=== PATIENT | female | born 1970 | race Caucasian/White ===

== ENCOUNTER → 2020-07-08 10:24 | Outpatient (CLI) | payer OTHER, SELFPAY ==
[2020-07-08] MEDS: COVID-19 VACC(MODERNA-1)/PF 100 MCG/0.5 ML VIAL IM (10:31)
== END ==
PROVIDERS: Visit Provider Internal Medicine
DX: Z23 Encounter for immunization (principal)
CPT/HCPCS: 0011A; 91301

== ENCOUNTER → 2020-08-03 10:04 | Outpatient (CLI) | payer OTHER, SELFPAY ==
[2020-08-03] MEDS: COVID-19 VACC #2, MRNA(MOD) 100 MCG/0.5 ML VIAL IM (10:09)
== END ==
PROVIDERS: Visit Provider Internal Medicine
DX: Z23 Encounter for immunization (principal)
CPT/HCPCS: 0012A; 91301

== ENCOUNTER → 2020-12-06 07:12 | Outpatient (CLI) | payer OTHER, SELFPAY ==
[2020-12-06 08:01] LABS: Add Manual Diff / Slide Review NO; Basophils Absolute Auto 0 /uL (0-100); Basophils Percent Auto 0.4 % (0-2); Eosinophils Absolute Auto 100 /uL (0-450); Eosinophils Percent Auto 3.1 % (2-4); Hematocrit 36.6 % (36-46); Hemoglobin 12.6 g/dL (12.0-16.0); Lymphocytes Absolute Auto 1600 /uL (1100-4500); Lymphocytes Percent Auto 40.2 % (25-40); Mean Corpuscular HGB Conc 34.4 % (30-36); Mean Corpuscular Volume 87.1 fL (80-100); Monocytes Absolute Auto 300 /uL (0-900); Monocytes Percent Auto 7.7 % (3-14); Neutrophils Absolute Auto 1900 /uL (1500-7000); Neutrophils Percent Auto 48.6 % (50-75); Platelet Count 212 X10^3/uL (150-400)
[2020-12-06 08:19] LABS: Alanine Aminotransferase 17 IU/L (<35); Albumin 4.1 g/dL (3.5-5.0); Albumin Globulin Ratio 1.4 (1.0-2.8); Alkaline Phosphatase 47 U/L (38-126); Aspartate Aminotransferase 22 IU/L (14-36); BUN Creatinine Ratio 24.5 (6-22); Bilirubin Total 0.2 mg/dL (0.2-1.3); Blood Urea Nitrogen 13 mg/dL (7-17); Calcium 9.4 mg/dL (8.4-10.2); Carbon Dioxide 29 mmol/L (22-32); Chloride 101 mmol/L (98-107); Estimated Glomerular Filt Rate > 60.0 mL/min (>60); Globulin 2.9 g/dL (1.7-4.1); Glucose 102 mg/dL (70-100); HEMOLYSIS < 15 (0-50); Potassium 4.3 mmol/L (3.4-5.1); Sodium 135 mmol/L (137-145)
[2020-12-06 08:40] LABS: Free T4, Direct Thyroxine 1.14 ng/dL (0.78-2.19)
[2020-12-06 08:54] LABS: Thyroid Stimulating Hormone 1.99 uIU/mL (0.47-4.68)
== END ==
PROVIDERS: PCP Registered Nurse; Referring Provider Registered Nurse; Visit Provider Registered Nurse
DX: R53.83 Other fatigue (principal); N92.0 Excessive and frequent menstruation with regular cycle
CPT/HCPCS: 36415; 80053; 84439; 84443; 85025

== ENCOUNTER → 2021-04-12 | Outpatient (CLI) | payer OTHER, SELFPAY | PROVIDERS: PCP Registered Nurse; Referring Provider Internal Medicine; Visit Provider Internal Medicine | DX: Z23 Encounter for immunization (principal) | CPT/HCPCS: 90471; 90686 ==

== ENCOUNTER → 2021-05-09 16:05 | Outpatient (CLI) | payer OTHER, SELFPAY ==
[2021-05-09 17:20] LABS: COVID19 -Nasal RAPID Negative (Negative)
== END ==
PROVIDERS: PCP Registered Nurse; Visit Provider Obstetrics & Gynecology
DX: Z20.822 Contact with and (suspected) exposure to COVID-19 (principal); Z01.812 Encounter for preprocedural laboratory examination
CPT/HCPCS: 87635

== ENCOUNTER 2021-05-10 12:26 | Day surgery (SDC) | payer OTHER, SELFPAY ==
[2021-05-06 10:12] VITALS: BMI 24.4
--- NOTE | 2021-05-10 | PATH_ITS ---
[facility] Accession Number: [id number] . 01 Material submitted: . PART A: endocervix - ENDOCERVICAL CURRETTINGS PART B: cervix - EXCISION OF CERVIX . 02 Diagnosis: A. Endocervix, Curettage: Endocervical and squamous epithelium with no diagnostic abnormality. No evidence of squamous intraepithelial lesion or malignancy. . B. Cervix, LEEP: Cervical transformation zone with focal mild squamous atypia, suggestive of but not diagnostic of low-grade squamous intraepithelial lesion (AMOL-1). Negative for high-grade squamous intraepithelial lesion or malignancy. Margins appear negative for neoplasm. [facility] 05/17/2021 1603 Local . 02 Comment: . . 02 Electronically signed: . Hesham Healy MD, PhD, Pathologist NPI- [id number] . 01 Gross description: . A. Received in formalin, labeled with the patient's name and additionally labeled endocervical curettage is an aggregate of hauser-brown mucoid material measuring 2.0 x 1.0 x 0.2 cm. The specimen is wrapped and entirely submitted in cassette A1. B. Received in formalin, labeled with the patient's name and additionally labeled cervix, excision is an unoriented cervical LEEP specimen measuring 1.7 x 1.0 cm excised to a depth of 0.9 cm. The cervical os is slit-like and patent measuring 0.6 cm in greatest dimension. The ectocervical mucosa is hauser-pink and smooth, and no lesions are grossly identified. The endocervical margin is inked red, and the remaining deep and ectocervical margin are inked blue. The unoriented specimen is arbitrarily sectioned into quadrants, with each quadrant submitted in cassettes B1-B4, respectively. ([id number]) /MRV 05/13/2021 [facility] . 02 Pathologist provided ICD-10: R87.810 . 02 CPT . 237654, [id number] Performed at: 01 [facility] [address] [id number] MD Gary Maravilla MD Phone: [phone] Performed at: [id number] [place], [place] [id number] MD Susan Tran MD Phone: [phone]
[2021-05-10 12:40] VITALS: BP 105/71; PULSE 56; RESP 16; TEMP 36.6; O2SAT 98; BMI 24.1
[2021-05-10] MEDS: LACTATED RINGERS 1,000 ML 100 ML IV (12:52)
--- NOTE | 2021-05-10 13:09 | PM.PREOP ---
Pre-operative Note COVID-19 COVID-19 status: Negative Result date/Date tested (Pos, Neg/Pending): 05/09/21 Interval Note History & Physical reviewed/Exam performed by Physician: Yes Changes to H&P: No
[2021-05-10] MEDS: BUPIVACAINE 0.5% (PF) VIAL 30 ML INJ (13:57)
[2021-05-10] MEDS: FERRIC SUBSULFATE 8 GM SOLUTION 8 ML TOP (13:57)
[2021-05-10] MEDS: POTASSIUM IODIDE/IODINE 473 ML SOLUTION TOP (13:57)
[2021-05-10] MEDS: EPINEPHrine 1 MG/ML 0.15 MG INJ (13:57)
--- NOTE | 2021-05-10 14:09 | SUR.OPER ---
Lithotomy on padded OR bed, head on pillow, arms secured on padded arm boards at <90 degrees abduction. Legs secured in padded yellow fins stirrups.
--- NOTE | 2021-05-10 14:14 | PM.OP.1 ---
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 No areas of nonstaining with Lugols Closure Type: not applicable Specimen(s): other (Cone biopsy by LEEP and ECC) Estimated Blood Loss (mL): 1 Blood products transfused: none Procedure in detail: Patient is brought to the operating room where she underwent general anesthesia. She was placed in low Yellofin stirrups and draped. A check system was reviewed with staff in the room prior to beginning of the case. No antibiotics were indicated. Pulsatile stockings were in place and functional. Warming was with blankets. The cervix was stained with Lugol's. The cervix was injected with Marcaine with epinephrine. A small loop was used to remove the entire squamocolumnar junction in 1 pass. An ECC was performed. The base of the cone and outside of the come more cauterized with the ball cautery. The Monsel's was placed on the cervix. Tissue sent to pathology. Patient went to recovery room in good condition. Counts of instruments and sponges were correct. Complications: none Post-operative Condition: stable Disposition: same day surgery Plan for aftercare: Home when awake and stable. Treatment and follow-up based on biopsy results.
[2021-05-10 14:15] VITALS: BP 108/62; PULSE 69; RESP 10; TEMP 36.2; O2SAT 100
[2021-05-10 14:20] VITALS: BP 102/63; PULSE 60; RESP 12; O2SAT 99
[2021-05-10 14:25] VITALS: BP 116/64; PULSE 51; RESP 12; O2SAT 99
[2021-05-10 14:31] VITALS: BP 128/70; PULSE 56; RESP 12; TEMP 36.2; O2SAT 100
[2021-05-10 14:39] VITALS: BP 126/76; PULSE 46; RESP 12; TEMP 36.4; O2SAT 99
== END 2021-05-10 14:50 | disposition home or self-care (01) ==
PROVIDERS: PCP Registered Nurse; Referring Provider Specialist; Visit Provider Specialist
PROC: 0UBC7ZZ Excision of Cervix, Via Natural or Artificial Opening (ICD-10-PCS; CPT 57522; principal; 2021-05-10 13:30)
DX: R87.810 Cervical high risk human papillomavirus (HPV) DNA test positive (principal)
CPT/HCPCS: 57522; 81025; A9270; J0171; J1100; J1885; J2250; J2405; J2704; J3010

== ENCOUNTER 2021-11-30 11:45 | Outpatient (RCR) | payer OTHER, SELFPAY ==
--- NOTE | 2021-10-05 16:50 | PT.OPPOC ---
Physical, Occupational & Speech Therapy At [facility] Current Diagnoses Other chronic pain (10/05/21) Plantar fascial fibromatosis (10/05/21) Pain in left foot (10/05/21) Difficulty in walking, not elsewhere classified (10/05/21) Visit Care Team Role Provider Type MAXWELL Florian Attending Provider Advanced Reexaminer Family Provider Primary Care Provider Referring Provider Specialty: Medical Address: [address] [place] [address], [facility] Email: [email or web address] Plan Of Care PT-OP-T Assessment and Plan Start: 10/04/21 12:56 Freq: Status: Active Protocol: Document 10/05/21 13:45 AW (Rec: 10/09/21 16:48 AW [id number]) Physical Therapy Assessment Rehab Potential Rehabilitation Potential Good Evaluation Complexity Number of Personal Factors/Comorbidities 1-2 Number of Body Systems Impaired 1-2 Clinical Presentation at Evaluation Stable Impairments Impairments Balance,Gait,Pain,Soft Tissue Mobility,Strength Goals Four Impairment walking tolerance affected by left foot pain Short Term Goal (STG) Pt will hike trails with loaded backpack 2 hours without increase in baseline pain. STG Duration 4 weeks - 11/02/21 Senior Living Goal (LTG) Pt will hike trails with loaded backpack at least 4 hours without increase in baseline pain. LTG Duration 8 weeks - 11/30/21 Three Impairment balance/single leg stance Senior Living Goal (LTG) Pt will improve single leg stance to stable 30 seconds BLE as a measure of improved ankle stability. LTG Duration 8 weeks - 11/30/21 Two Impairment left foot/ankle strength Senior Living Goal (LTG) Pt will improve left foot and ankle strength to 5/5 all planes to improve gait quality . LTG Duration 8 weeks - 11/30/21 One Impairment lacks HEP Short Term Goal (STG) Pt will be instructed in HEP for to manage left foot pain and improve left foot/ankle strength and stability. STG Duration 4 weeks - 11/02/21 Senior Living Goal (LTG) Pt will be independent with HEP for to manage left foot pain and improve left foot/ ankle strength and stability. LTG Duration 8 weeks - 11/30/21 Assessment Summary Assessment Freda is an active 51 yo woman who attend outpatient physical therapy with complaints of left foot and right knee pain. Her pain does not limit her from regular activity but she would like to learn tools to improve her pain with the goal of trekking [place] in November. She presents with slight deficits in left foot and ankle strength as well as single leg balance deficits. Her symptoms are consistent with plantar fasciitis which is likely altering her gait mechanics, leading to right knee pain. She is expected to benefit from skilled physical therapy to address her plantar foot pain, improve her foot and ankle strength, and improve her gait efficiency. Physical Therapy Plan Frequency and Duration Frequency of Treatment 2x/Week Duration of Treatment 2 months Plan of Care Start Date 10/05/21 Plan of Care End Date 12/05/21 Therapeutic Interventions Therapeutic Interventions Balance Training,Gait Training ,Home Exercise Program,Manual Therapy,Neuromuscular Re- education,Self-Care/Home Management,Soft Tissue Mobilization,Taping, Therapeutic Activities, Therapeutic Exercises Next Visit Focus/Plan Next Note Type Treatment Note Next Visit Plan Review initial HEP. STM plantar fascia and gastroc/ soleus. Consider taping to support plantar fascia. Assess 4-way resisted ankle and consider for HEP as appropriate. Consider modified CTSIB for proprioception assessment. Plan of Care Dates Plan of Care Start Date 10/05/21 Plan of Care End Date 12/05/21 Electronically Signed by: Marsha Almanzar, STEPHANIE 10/09/21 [id number] Please Sign and Return: I have reviewed this Plan of Care and certify that the skilled therapy services above are required to meet the patient?s needs. Physician Signature Date Printed Name and Credentials Clinical Instructor Signature Printed Name and Credentials
--- NOTE | 2021-10-05 16:50 | PT.OIE ---
Current Diagnoses Other chronic pain (10/05/21) Plantar fascial fibromatosis (10/05/21) Pain in left foot (10/05/21) Difficulty in walking, not elsewhere classified (10/05/21) Past Medical History (Last Reviewed 08/31/21 @ 10:35 by MAXWELL Florian) Callus of foot Fatigue Frequent menstruation Human papilloma virus Hx of partial mastectomy (04/2019) Pain, foot, left, chronic Plantar fasciitis of left foot Plantar warts (~2010) Status post breast reduction (~2015) Wears glasses Past Surgical History (Last Reviewed 08/31/21 @ 10:35 by MAXWELL Florian) Anesthesia History of uterine fibroid (~2011) Hx of partial mastectomy (04/2019) Status post breast reduction (~2015) Visit Care Team Role Provider Type MAXWELL Florian Attending Provider Advanced Vegetable Canner Family Provider Primary Care Provider Referring Provider Specialty: Medical Address: [address] [place] [address], [facility] Email: [email or web address] Physical Therapy Initial Evaluation PT-OP-A Visit Information Start: 10/04/21 12:56 Freq: Status: Active Protocol: Document 10/05/21 13:45 AW (Rec: 10/04/21 13:02 AW [id number]) Out-Patient Physical Therapy Visit Information Visit Information Visit Type Initial Evaluation Visit Start Time 13:00 Visit Stop Time 13:45 Total Visit Minutes 45 Visit Number 1 Evaluation Information Evaluation Date 10/05/21 PT-OP-B Current Condition Start: 10/04/21 12:56 Freq: Status: Active Protocol: Document 10/05/21 13:45 AW (Rec: 10/04/21 13:02 AW [id number]) Current Condition History of Current Condition Onset Date 1 month Current Complaints left foot pain History of Current Condition Freda is training for a Compliance [employer] this November. She has been carrying more weight in her pack (~45#) on local hiking trails several days per week. She usually hikes 1-2 hours at a time. She also does trail running. Her shoes are supportive and she uses an off -the-shelf insert to support her arches. She notices her left foot aching along medial arch. She is not aware of heel pain generally but notices it is tender to touch on the plantar surface. Ibuprofen on a limited basis, ice, rest, and massage are all helpful. She has most pain with inversion. She reports a remote history of left distal fibula fracture. 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 Treatment Goals Patient/Caregiver Goals Reduce pain. Be able to increase strength. Hike [place] without pain. PT-OP-C Subjective Start: 10/04/21 12:56 Freq: Status: Active Protocol: Document 10/05/21 13:45 AW (Rec: 10/09/21 16:25 AW [id number]) OP-PT Subjective Patient Comments Patient Comments It's more annoying than painful but it's not getting any better. Patient Questionnaires Foot & Ankle Ability Measure- ADL and Sports FAAM-ADL Score 74 FAAM-ADL Impairment 1 to 19% Impaired (Score 67-83 ) FAAM-Sport Score 20 FAAM-Sport Impairment 20 to 39% Impaired (Score 19- 24) Lower Extremity Functional Scale LEFS Score 72 LEFS Impairment 1 to 19% Impaired (Score 63-79 ) OP-PT Pain Assessment Pain Assessment Grid Paper Pain Assessment Grid Completed Yes: Left foot and right knee pain noted. Scanned to EMR Home Pain Medication Use Pain Medications Used Yes: limited use of ibuprofen PT-OP-D Balance Start: 10/04/21 12:56 Freq: Status: Active Protocol: Document 10/05/21 13:45 AW (Rec: 10/09/21 16:49 AW [id number]) Balance Tests Single Limb Standing Single Limb- Right 25 seconds stable Single Limb- Left 18 seconds unstable PT-OP-F Manual Assessment Start: 10/04/21 12:56 Freq: Status: Active Protocol: Document 10/05/21 13:45 AW (Rec: 10/09/21 16:25 AW [id number]) Manual Assessments Soft Tissue Assessment Soft Tissue Mobility Assessment Increased density of gastroc/ soleus complex on the left. TTP along left longitudinal arch. Joint Mobility Assessment Joint Mobility Assessment Good mobility bilateral feet and ankles. PT-OP-G Mobility & Gait Start: 10/04/21 12:56 Freq: Status: Active Protocol: Document 10/05/21 13:45 AW (Rec: 10/09/21 16:25 AW [id number]) OP Gait Assessment Comments Gait Comments Gait notable for slightly weak left toe off. PT-OP-J Posture/Palpation/Skin Start: 10/04/21 12:56 Freq: Status: Active Protocol: Document 10/05/21 13:45 AW (Rec: 10/09/21 16:32 AW [id number]) Posture Evaluation Comments Posture Comments No incongruence in bony landmarks. No appreciable hindfoot varus or valgus. PT-OP-K Range of Motion Start: 10/04/21 12:56 Freq: Status: Active Protocol: Document 10/05/21 13:45 AW (Rec: 10/09/21 16:32 AW [id number]) Hip Goniometric Range of Motion Hip B Hip ROM WFL Yes Knee Goniometric Range of Motion Knee B Knee ROM WFL Yes Ankle and Foot Goniometric Range of Motion Ankle and Foot B Ankle/Foot ROM WFL Yes Comments No ROM limitations other than slightly painful inversion on the left PT-OP-M Strength Start: 10/04/21 12:56 Freq: Status: Active Protocol: Document 10/05/21 13:45 AW (Rec: 10/09/21 16:32 AW [id number]) Hip Strength Hip Manual Muscle Testing B Flexion (L2) 5 Normal Extension (S1) 4+ Good+ Abduction 4+ Good+ External Rotation 5 Normal Internal Rotation 5 Normal Knee Strength Knee Manual Muscle Testing B Flexion (S2) 5 Normal Extension (L3) 5 Normal Ankle/Foot Strength Ankle and Foot Manual Muscle Testing B Dorsiflexion (L4) 5 Normal Plantarflexion (S1) 4+ Good+ Inversion 4+ Good+ Eversion (S1) 5 Normal Toe Strength Toe Manual Muscle Testing Great Toe Comments 5/5 R; 4+/5 L PT-OP-Q Treatments Start: 10/04/21 12:56 Freq: Status: Active Protocol: Document 10/05/21 13:45 AW (Rec: 10/09/21 16:32 AW [id number]) Therapeutic Exercises Sitting Exercises towel scrunch Sitting Exercise Name towel scrunch Side left Comments HEP arch lift Sitting Exercise Name arch lift Side left Comments HEP Standing Exercises gastroc stretch Standing Exercise Name gastroc stretch - standing at wall Side bilateral Reps/Minutes 30 SH x 4 Comments HEP Self-Care/Home Management Treatment Education Patient Education Home Exercise Program Other Education Provided initial HEP for intrinsic foot strength and gastroc stretch. Educated pt on possible use of frozen water bottle to roll the bottom of her left foot. Educated pt to do gastroc stretch before hiking or running. PT-OP-T Assessment and Plan Start: 10/04/21 12:56 Freq: Status: Active Protocol: Document 10/05/21 13:45 AW (Rec: 10/09/21 16:48 AW [id number]) Physical Therapy Assessment Rehab Potential Rehabilitation Potential Good Evaluation Complexity Number of Personal Factors/Comorbidities 1-2 Number of Body Systems Impaired 1-2 Clinical Presentation at Evaluation Stable Impairments Impairments Balance,Gait,Pain,Soft Tissue Mobility,Strength Goals Four Impairment walking tolerance affected by left foot pain Short Term Goal (STG) Pt will hike trails with loaded backpack 2 hours without increase in baseline pain. STG Duration 4 weeks - 11/02/21 Podiatrist Assistant Goal (LTG) Pt will hike trails with loaded backpack at least 4 hours without increase in baseline pain. LTG Duration 8 weeks - 11/30/21 Three Impairment balance/single leg stance Podiatrist Assistant Goal (LTG) Pt will improve single leg stance to stable 30 seconds BLE as a measure of improved ankle stability. LTG Duration 8 weeks - 11/30/21 Two Impairment left foot/ankle strength Prison Goal (LTG) Pt will improve left foot and ankle strength to 5/5 all planes to improve gait quality . LTG Duration 8 weeks - 11/30/21 One Impairment lacks HEP Short Term Goal (STG) Pt will be instructed in HEP for to manage left foot pain and improve left foot/ankle strength and stability. STG Duration 4 weeks - 11/02/21 Prison Goal (LTG) Pt will be independent with HEP for to manage left foot pain and improve left foot/ ankle strength and stability. LTG Duration 8 weeks - 11/30/21 Assessment Summary Assessment Freda is an active 51 yo woman who attend outpatient physical therapy with complaints of left foot and right knee pain. Her pain does not limit her from regular activity but she would like to learn tools to improve her pain with the goal of trekking [place] in November. She presents with slight deficits in left foot and ankle strength as well as single leg balance deficits. Her symptoms are consistent with plantar fasciitis which is likely altering her gait mechanics, leading to right knee pain. She is expected to benefit from skilled physical therapy to address her plantar foot pain, improve her foot and ankle strength, and improve her gait efficiency. Physical Therapy Plan Frequency and Duration Frequency of Treatment 2x/Week Duration of Treatment 2 months Plan of Care Start Date 10/05/21 Plan of Care End Date 12/05/21 Therapeutic Interventions Therapeutic Interventions Balance Training,Gait Training ,Home Exercise Program,Manual Therapy,Neuromuscular Re- education,Self-Care/Home Management,Soft Tissue Mobilization,Taping, Therapeutic Activities, Therapeutic Exercises Next Visit Focus/Plan Next Note Type Treatment Note Next Visit Plan Review initial HEP. STM plantar fascia and gastroc/ soleus. Consider taping to support plantar fascia. Assess 4-way resisted ankle and consider for HEP as appropriate. Consider modified CTSIB for proprioception assessment.
--- NOTE | 2021-10-10 12:47 | PT.OTN ---
Current Diagnoses Other chronic pain (10/10/21) Plantar fascial fibromatosis (10/10/21) Pain in left foot (10/10/21) Difficulty in walking, not elsewhere classified (10/10/21) Physical Therapy Treatment Note PT-OP-A Visit Information Start: 10/04/21 12:56 Freq: Status: Active Protocol: Document 10/10/21 12:06 MA (Rec: 10/10/21 12:47 MA [id number]) Out-Patient Physical Therapy Visit Information Visit Information Visit Type Treatment Note Visit Start Time 12:00 Visit Stop Time 12:42 Total Visit Minutes 42 Visit Number 2 Number of MANUFACTURING INTERN Visits 1 PT-OP-B Current Condition Start: 10/04/21 12:56 Freq: Status: Active Protocol: Document 10/05/21 13:45 AW (Rec: 10/04/21 13:02 AW [id number]) Current Condition History of Current Condition Onset Date 1 month Current Complaints left foot pain History of Current Condition Freda is training for a [employer] this November. She has been carrying more weight in her pack (~45#) on local hiking trails several days per week. She usually hikes 1-2 hours at a time. She also does trail running. Her shoes are supportive and she uses an off -the-shelf insert to support her arches. She notices her left foot aching along medial arch. She is not aware of heel pain generally but notices it is tender to touch on the plantar surface. Ibuprofen on a limited basis, ice, rest, and massage are all helpful. She has most pain with inversion. She reports a remote history of left distal fibula fracture. 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 Treatment Goals Patient/Caregiver Goals Reduce pain. Be able to increase strength. Hike Respiratory Motion without pain. PT-OP-C Subjective Start: 10/04/21 12:56 Freq: Status: Active Protocol: Document 10/10/21 12:06 MA (Rec: 10/10/21 12:47 MA [id number]) OP-PT Subjective Patient Comments Patient Comments Pt has taken a couple day break from running so her L foot is feeling better. It always bothers her more when she is hiking or running vs just walking around. Pediatrist also thinks it's plantar fascitis PT-OP-D Balance Start: 10/04/21 12:56 Freq: Status: Active Protocol: Document 10/05/21 13:45 AW (Rec: 10/09/21 16:49 AW [id number]) Balance Tests Single Limb Standing Single Limb- Right 25 seconds stable Single Limb- Left 18 seconds unstable PT-OP-F Manual Assessment Start: 10/04/21 12:56 Freq: Status: Active Protocol: Document 10/05/21 13:45 AW (Rec: 10/09/21 16:25 AW [id number]) Manual Assessments Soft Tissue Assessment Soft Tissue Mobility Assessment Increased density of gastroc/ soleus complex on the left. TTP along left longitudinal arch. Joint Mobility Assessment Joint Mobility Assessment Good mobility bilateral feet and ankles. PT-OP-G Mobility & Gait Start: 10/04/21 12:56 Freq: Status: Active Protocol: Document 10/05/21 13:45 AW (Rec: 10/09/21 16:25 AW [id number]) OP Gait Assessment Comments Gait Comments Gait notable for slightly weak left toe off. PT-OP-J Posture/Palpation/Skin Start: 10/04/21 12:56 Freq: Status: Active Protocol: Document 10/05/21 13:45 AW (Rec: 10/09/21 16:32 AW [id number]) Posture Evaluation Comments Posture Comments No incongruence in bony landmarks. No appreciable hindfoot varus or valgus. PT-OP-K Range of Motion Start: 10/04/21 12:56 Freq: Status: Active Protocol: Document 10/05/21 13:45 AW (Rec: 10/09/21 16:32 AW [id number]) Hip Goniometric Range of Motion Hip B Hip ROM WFL Yes Knee Goniometric Range of Motion Knee B Knee ROM WFL Yes Ankle and Foot Goniometric Range of Motion Ankle and Foot B Ankle/Foot ROM WFL Yes Comments No ROM limitations other than slightly painful inversion on the left PT-OP-M Strength Start: 10/04/21 12:56 Freq: Status: Active Protocol: Document 10/05/21 13:45 AW (Rec: 10/09/21 16:32 AW [id number]) Hip Strength Hip Manual Muscle Testing B Flexion (L2) 5 Normal Extension (S1) 4+ Good+ Abduction 4+ Good+ External Rotation 5 Normal Internal Rotation 5 Normal Knee Strength Knee Manual Muscle Testing B Flexion (S2) 5 Normal Extension (L3) 5 Normal Ankle/Foot Strength Ankle and Foot Manual Muscle Testing B Dorsiflexion (L4) 5 Normal Plantarflexion (S1) 4+ Good+ Inversion 4+ Good+ Eversion (S1) 5 Normal Toe Strength Toe Manual Muscle Testing Great Toe Comments 5/5 R; 4+/5 L PT-OP-Q Treatments Start: 10/04/21 12:56 Freq: Status: Active Protocol: Document 10/10/21 12:06 MA (Rec: 10/10/21 12:47 MA [id number]) Therapeutic Exercises Sitting Exercises PF/DF/IV/EV Side left Equipment Used lvl 2 TB Reps/Minutes 10x ea Comments added to HEP towel scrunch Sitting Exercise Name towel scrunch Side left Comments HEP arch lift Sitting Exercise Name arch lift- in seated and standing Side left Comments HEP Standing Exercises gastroc stretch Standing Exercise Name gastroc stretch - standing at wall Side bilateral Reps/Minutes 30 SH x 4 Comments HEP Manual Therapy Treatment Soft Tissue Mobilization Gastroc Body Location L gastroc and plantar fascia Mobilization Type Myofascial Release,Sustained Pressure,Trigger Point Release Intensity/Depth Moderate Body Position Prone Taping L PF Body Location L plantar fascia Treatment Focus decreasing pain Type of Tape ktpae Skin Inspection intact Self-Care/Home Management Treatment Education Patient Education Home Exercise Program Other Education Added to HEP 4-way ankle strengthening with lvl 2 TB. Educated pt on self-STM and importance of stretching PT-OP-T Assessment and Plan Start: 10/04/21 12:56 Freq: Status: Active Protocol: Document 10/10/21 12:06 MA (Rec: 10/10/21 12:47 MA [id number]) Physical Therapy Assessment Goals Four Impairment walking tolerance affected by left foot pain Short Term Goal (STG) Pt will hike trails with loaded backpack 2 hours without increase in baseline pain. STG Duration 4 weeks - 11/02/21 Fitter Placer Goal (LTG) Pt will hike trails with loaded backpack at least 4 hours without increase in baseline pain. LTG Duration 8 weeks - 11/30/21 Three Impairment balance/single leg stance Half-Way Goal (LTG) Pt will improve single leg stance to stable 30 seconds BLE as a measure of improved ankle stability. LTG Duration 8 weeks - 11/30/21 Two Impairment left foot/ankle strength Fitter Placer Goal (LTG) Pt will improve left foot and ankle strength to 5/5 all planes to improve gait quality . LTG Duration 8 weeks - 11/30/21 One Impairment lacks HEP Short Term Goal (STG) Pt will be instructed in HEP for to manage left foot pain and improve left foot/ankle strength and stability. STG Duration 4 weeks - 11/02/21 Half-Way Goal (LTG) Pt will be independent with HEP for to manage left foot pain and improve left foot/ ankle strength and stability. LTG Duration 8 weeks - 11/30/21 Assessment Summary Assessment Pt has minor discomfort during STM on plantar fascia. She does well with ankle strengthening activities and demonstrates good form with previous HEP exercises. Added in resisted IV/EV/PF/DF to HEP . Physical Therapy Plan Frequency and Duration Frequency of Treatment 2x/Week Duration of Treatment 2 months Plan of Care Start Date 10/05/21 Plan of Care End Date 12/05/21 Therapeutic Interventions Therapeutic Interventions Balance Training,Gait Training ,Home Exercise Program,Manual Therapy,Neuromuscular Re- education,Self-Care/Home Management,Soft Tissue Mobilization,Taping, Therapeutic Activities, Therapeutic Exercises Next Visit Focus/Plan Next Note Type Treatment Note Next Visit Plan Review new HEP and assess Ktape. STM plantar fascia and gastroc/soleus. Consider modified CTSIB for proprioception assessment.
--- NOTE | 2021-10-13 10:19 | PT.OTN ---
Current Diagnoses Other chronic pain (10/13/21) Plantar fascial fibromatosis (10/13/21) Pain in left foot (10/13/21) Difficulty in walking, not elsewhere classified (10/13/21) Physical Therapy Treatment Note PT-OP-A Visit Information Start: 10/04/21 12:56 Freq: Status: Active Protocol: Document 10/13/21 09:20 MA (Rec: 10/13/21 10:19 MA [id number]) Out-Patient Physical Therapy Visit Information Visit Information Visit Type Treatment Note Visit Start Time 09:23 Visit Stop Time 10:09 Total Visit Minutes 46 Visit Number 3 Number of OBGYN NURSE Visits 2 PT-OP-B Current Condition Start: 10/04/21 12:56 Freq: Status: Active Protocol: Document 10/05/21 13:45 AW (Rec: 10/04/21 13:02 AW [id number]) Current Condition History of Current Condition Onset Date 1 month Current Complaints left foot pain History of Current Condition Freda is training for a [employer] this November. She has been carrying more weight in her pack (~45#) on local hiking trails several days per week. She usually hikes 1-2 hours at a time. She also does trail running. Her shoes are supportive and she uses an off -the-shelf insert to support her arches. She notices her left foot aching along medial arch. She is not aware of heel pain generally but notices it is tender to touch on the plantar surface. Ibuprofen on a limited basis, ice, rest, and massage are all helpful. She has most pain with inversion. She reports a remote history of left distal fibula fracture. 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 Treatment Goals Patient/Caregiver Goals Reduce pain. Be able to increase strength. [employer] without pain. PT-OP-C Subjective Start: 10/04/21 12:56 Freq: Status: Active Protocol: Document 10/13/21 09:20 MA (Rec: 10/13/21 10:19 MA [id number]) OP-PT Subjective Patient Comments Patient Comments Pt went for a trail run the other day and her ankle was a little more sore after that. She tried new HEP but did not try using a frozen water bottle to roll out foot yet. PT-OP-D Balance Start: 10/04/21 12:56 Freq: Status: Active Protocol: Document 10/05/21 13:45 AW (Rec: 10/09/21 16:49 AW [id number]) Balance Tests Single Limb Standing Single Limb- Right 25 seconds stable Single Limb- Left 18 seconds unstable PT-OP-F Manual Assessment Start: 10/04/21 12:56 Freq: Status: Active Protocol: Document 10/05/21 13:45 AW (Rec: 10/09/21 16:25 AW [id number]) Manual Assessments Soft Tissue Assessment Soft Tissue Mobility Assessment Increased density of gastroc/ soleus complex on the left. TTP along left longitudinal arch. Joint Mobility Assessment Joint Mobility Assessment Good mobility bilateral feet and ankles. PT-OP-G Mobility & Gait Start: 10/04/21 12:56 Freq: Status: Active Protocol: Document 10/05/21 13:45 AW (Rec: 10/09/21 16:25 AW [id number]) OP Gait Assessment Comments Gait Comments Gait notable for slightly weak left toe off. PT-OP-J Posture/Palpation/Skin Start: 10/04/21 12:56 Freq: Status: Active Protocol: Document 10/05/21 13:45 AW (Rec: 10/09/21 16:32 AW [id number]) Posture Evaluation Comments Posture Comments No incongruence in bony landmarks. No appreciable hindfoot varus or valgus. PT-OP-K Range of Motion Start: 10/04/21 12:56 Freq: Status: Active Protocol: Document 10/05/21 13:45 AW (Rec: 10/09/21 16:32 AW [id number]) Hip Goniometric Range of Motion Hip B Hip ROM WFL Yes Knee Goniometric Range of Motion Knee B Knee ROM WFL Yes Ankle and Foot Goniometric Range of Motion Ankle and Foot B Ankle/Foot ROM WFL Yes Comments No ROM limitations other than slightly painful inversion on the left PT-OP-M Strength Start: 10/04/21 12:56 Freq: Status: Active Protocol: Document 10/05/21 13:45 AW (Rec: 10/09/21 16:32 AW [id number]) Hip Strength Hip Manual Muscle Testing B Flexion (L2) 5 Normal Extension (S1) 4+ Good+ Abduction 4+ Good+ External Rotation 5 Normal Internal Rotation 5 Normal Knee Strength Knee Manual Muscle Testing B Flexion (S2) 5 Normal Extension (L3) 5 Normal Ankle/Foot Strength Ankle and Foot Manual Muscle Testing B Dorsiflexion (L4) 5 Normal Plantarflexion (S1) 4+ Good+ Inversion 4+ Good+ Eversion (S1) 5 Normal Toe Strength Toe Manual Muscle Testing Great Toe Comments 5/5 R; 4+/5 L PT-OP-Q Treatments Start: 10/04/21 12:56 Freq: Status: Active Protocol: Document 10/13/21 09:20 MA (Rec: 10/13/21 10:19 MA [id number]) Therapeutic Exercises Sitting Exercises PF/DF/IV/EV Side left Equipment Used lvl 2 TB Reps/Minutes 15x ea Comments added to HEP arch lift Sitting Exercise Name arch lift- in seated and standing Side left Comments HEP Standing Exercises gastroc stretch Standing Exercise Name gastroc stretch - standing at wall Side bilateral Reps/Minutes 30 SH x 4 Comments HEP Other Exercises Foam Roller Other Exercise Name Rolling gastrocs Side bilateral Equipment Used foam roller Reps/Minutes 5' Comments added to HEP Manual Therapy Treatment Soft Tissue Mobilization Gastroc Body Location L gastroc and plantar fascia Mobilization Type Myofascial Release,Sustained Pressure,Trigger Point Release Intensity/Depth Moderate Body Position Prone Taping L PF Body Location L plantar fascia Treatment Focus decreasing pain Type of Tape ktpae Skin Inspection intact Neuro Re-Education Treatment Balance Activities Foam Surface uneven Equipment airex Comments Mod. CTSIB performed Self-Care/Home Management Treatment Education Patient Education Home Exercise Program Other Education Added foam rolling of veronica calves to HEP. Educated pt on importance of stretching after runs to decrease pain. PT-OP-T Assessment and Plan Start: 10/04/21 12:56 Freq: Status: Active Protocol: Document 10/13/21 09:20 MA (Rec: 10/13/21 10:19 MA [id number]) Physical Therapy Assessment Goals Four Impairment walking tolerance affected by left foot pain Short Term Goal (STG) Pt will hike trails with loaded backpack 2 hours without increase in baseline pain. STG Duration 4 weeks - 11/02/21 Cable Installer Repairer Helper Goal (LTG) Pt will hike trails with loaded backpack at least 4 hours without increase in baseline pain. LTG Duration 8 weeks - 11/30/21 Three Impairment balance/single leg stance Nursing Home Goal (LTG) Pt will improve single leg stance to stable 30 seconds BLE as a measure of improved ankle stability. LTG Duration 8 weeks - 11/30/21 Two Impairment left foot/ankle strength Cable Installer Repairer Helper Goal (LTG) Pt will improve left foot and ankle strength to 5/5 all planes to improve gait quality . LTG Duration 8 weeks - 11/30/21 One Impairment lacks HEP Short Term Goal (STG) Pt will be instructed in HEP for to manage left foot pain and improve left foot/ankle strength and stability. STG Duration 4 weeks - 11/02/21 Cable Installer Repairer Helper Goal (LTG) Pt will be independent with HEP for to manage left foot pain and improve left foot/ ankle strength and stability. LTG Duration 8 weeks - 11/30/21 Assessment Summary Assessment Pt shows no proprioceptive deficits during modified CTSIB . She has mild discomfort during STM to L gastrocs but feels STM is helpful with decreasing pain after PT. Instructed pt on how to use foam roller on bilateral gastrocs and added to HEP. Physical Therapy Plan Frequency and Duration Frequency of Treatment 2x/Week Duration of Treatment 2 months Plan of Care Start Date 10/05/21 Plan of Care End Date 12/05/21 Therapeutic Interventions Therapeutic Interventions Balance Training,Gait Training ,Home Exercise Program,Manual Therapy,Neuromuscular Re- education,Self-Care/Home Management,Soft Tissue Mobilization,Taping, Therapeutic Activities, Therapeutic Exercises Next Visit Focus/Plan Next Note Type Treatment Note Next Visit Plan STM plantar fascia and gastroc /soleus. Begin balance training-try SL arch lifts. KTape for plantar fasciitis. Continue educating pt on importance of stretching before/after runs.
--- NOTE | 2021-10-17 17:58 | PT.OTN ---
Current Diagnoses Other chronic pain (10/17/21) Plantar fascial fibromatosis (10/17/21) Pain in left foot (10/17/21) Difficulty in walking, not elsewhere classified (10/17/21) Physical Therapy Treatment Note PT-OP-A Visit Information Start: 10/04/21 12:56 Freq: Status: Active Protocol: Document 10/17/21 16:53 MA (Rec: 10/17/21 17:57 MA [id number]) Out-Patient Physical Therapy Visit Information Visit Information Visit Type Treatment Note Visit Start Time 16:50 Visit Stop Time 17:33 Total Visit Minutes 43 Visit Number 4 Number of INSPECTOR WELDED PARTS Visits 3 PT-OP-B Current Condition Start: 10/04/21 12:56 Freq: Status: Active Protocol: Document 10/05/21 13:45 AW (Rec: 10/04/21 13:02 AW [id number]) Current Condition History of Current Condition Onset Date 1 month Current Complaints left foot pain History of Current Condition Freda is training for a [employer] this November. She has been carrying more weight in her pack (~45#) on local hiking trails several days per week. She usually hikes 1-2 hours at a time. She also does trail running. Her shoes are supportive and she uses an off -the-shelf insert to support her arches. She notices her left foot aching along medial arch. She is not aware of heel pain generally but notices it is tender to touch on the plantar surface. Ibuprofen on a limited basis, ice, rest, and massage are all helpful. She has most pain with inversion. She reports a remote history of left distal fibula fracture. 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 Treatment Goals Patient/Caregiver Goals Reduce pain. Be able to increase strength. [employer] without pain. PT-OP-C Subjective Start: 10/04/21 12:56 Freq: Status: Active Protocol: Document 10/17/21 16:53 MA (Rec: 10/17/21 17:57 MA [id number]) OP-PT Subjective Patient Comments Patient Comments Pt feels her pain is about the same. She did well on doing her HEP for two days and then stopped. PT-OP-D Balance Start: 10/04/21 12:56 Freq: Status: Active Protocol: Document 10/05/21 13:45 AW (Rec: 10/09/21 16:49 AW [id number]) Balance Tests Single Limb Standing Single Limb- Right 25 seconds stable Single Limb- Left 18 seconds unstable PT-OP-F Manual Assessment Start: 10/04/21 12:56 Freq: Status: Active Protocol: Document 10/05/21 13:45 AW (Rec: 10/09/21 16:25 AW [id number]) Manual Assessments Soft Tissue Assessment Soft Tissue Mobility Assessment Increased density of gastroc/ soleus complex on the left. TTP along left longitudinal arch. Joint Mobility Assessment Joint Mobility Assessment Good mobility bilateral feet and ankles. PT-OP-G Mobility & Gait Start: 10/04/21 12:56 Freq: Status: Active Protocol: Document 10/05/21 13:45 AW (Rec: 10/09/21 16:25 AW [id number]) OP Gait Assessment Comments Gait Comments Gait notable for slightly weak left toe off. PT-OP-J Posture/Palpation/Skin Start: 10/04/21 12:56 Freq: Status: Active Protocol: Document 10/05/21 13:45 AW (Rec: 10/09/21 16:32 AW [id number]) Posture Evaluation Comments Posture Comments No incongruence in bony landmarks. No appreciable hindfoot varus or valgus. PT-OP-K Range of Motion Start: 10/04/21 12:56 Freq: Status: Active Protocol: Document 10/05/21 13:45 AW (Rec: 10/09/21 16:32 AW [id number]) Hip Goniometric Range of Motion Hip B Hip ROM WFL Yes Knee Goniometric Range of Motion Knee B Knee ROM WFL Yes Ankle and Foot Goniometric Range of Motion Ankle and Foot B Ankle/Foot ROM WFL Yes Comments No ROM limitations other than slightly painful inversion on the left PT-OP-M Strength Start: 10/04/21 12:56 Freq: Status: Active Protocol: Document 10/05/21 13:45 AW (Rec: 10/09/21 16:32 AW [id number]) Hip Strength Hip Manual Muscle Testing B Flexion (L2) 5 Normal Extension (S1) 4+ Good+ Abduction 4+ Good+ External Rotation 5 Normal Internal Rotation 5 Normal Knee Strength Knee Manual Muscle Testing B Flexion (S2) 5 Normal Extension (L3) 5 Normal Ankle/Foot Strength Ankle and Foot Manual Muscle Testing B Dorsiflexion (L4) 5 Normal Plantarflexion (S1) 4+ Good+ Inversion 4+ Good+ Eversion (S1) 5 Normal Toe Strength Toe Manual Muscle Testing Great Toe Comments 5/5 R; 4+/5 L PT-OP-Q Treatments Start: 10/04/21 12:56 Freq: Status: Active Protocol: Document 10/17/21 16:53 MA (Rec: 10/17/21 17:57 MA [id number]) Gym Equipment Shuttle Balance Red Clips Details WBOS, NBOS, mod tandem Reps/Duration 5' Comments while throwing ball at rebounder Therapeutic Exercises Sitting Exercises PF/DF/IV/EV Side left Equipment Used lvl 2 TB Reps/Minutes 15x ea Comments added to HEP arch lift Sitting Exercise Name arch lift- in seated and standing Side left Comments HEP Standing Exercises gastroc stretch Standing Exercise Name gastroc stretch - standing at wall Side bilateral Reps/Minutes 30 SH x 4 Comments HEP Other Exercises Talar Mob Side left Equipment Used lvl 5 TB Reps/Minutes x10 Manual Therapy Treatment Soft Tissue Mobilization Gastroc Body Location L gastroc and plantar fascia Mobilization Type Myofascial Release,Sustained Pressure,Trigger Point Release Intensity/Depth Moderate Body Position Prone Joint Mobilizations Talocrual Direction A/P Grade II Body Position Prone Neuro Re-Education Treatment Balance Activities Isabel Disc Surface blue isabel disc Reps/Duration 1' ea PT-OP-R Modalities Start: 10/04/21 12:56 Freq: Status: Active Protocol: Document 10/17/21 16:53 MA (Rec: 10/17/21 17:57 MA [id number]) Hot Pack/Cold Pack Treatment Ice Massage Location plantar fascia Patient Position Supine Treatment Duration (minutes) 5 Patient Tolerance Good PT-OP-T Assessment and Plan Start: 10/04/21 12:56 Freq: Status: Active Protocol: Document 10/17/21 16:53 MA (Rec: 10/17/21 17:57 MA [id number]) Physical Therapy Assessment Goals Four Impairment walking tolerance affected by left foot pain Short Term Goal (STG) Pt will hike trails with loaded backpack 2 hours without increase in baseline pain. STG Duration 4 weeks - 11/02/21 Orthopedic Cast Specialist Goal (LTG) Pt will hike trails with loaded backpack at least 4 hours without increase in baseline pain. LTG Duration 8 weeks - 11/30/21 Three Impairment balance/single leg stance Orthopedic Cast Specialist Goal (LTG) Pt will improve single leg stance to stable 30 seconds BLE as a measure of improved ankle stability. LTG Duration 8 weeks - 11/30/21 Two Impairment left foot/ankle strength Mcfp Goal (LTG) Pt will improve left foot and ankle strength to 5/5 all planes to improve gait quality . LTG Duration 8 weeks - 11/30/21 One Impairment lacks HEP Short Term Goal (STG) Pt will be instructed in HEP for to manage left foot pain and improve left foot/ankle strength and stability. STG Duration 4 weeks - 11/02/21 Orthopedic Cast Specialist Goal (LTG) Pt will be independent with HEP for to manage left foot pain and improve left foot/ ankle strength and stability. LTG Duration 8 weeks - 11/30/21 Assessment Summary Assessment Freda feels 'popping' in ankle initially today with resisted exercises and has minor lateral L ankle pain. After jt mobs, pt has no more 'popping'. Educated pt on using TB for self-mob to talocrual jt at home. Pt has no discomfort during STM today to L plantar fascia or gastrocs. She is challenged by balancing on uneven surfaces this session but has no pain while balancing. Encouraged pt to continue with HEP daily. Physical Therapy Plan Frequency and Duration Frequency of Treatment 2x/Week Duration of Treatment 2 months Plan of Care Start Date 10/05/21 Plan of Care End Date 12/05/21 Therapeutic Interventions Therapeutic Interventions Balance Training,Gait Training ,Home Exercise Program,Manual Therapy,Neuromuscular Re- education,Self-Care/Home Management,Soft Tissue Mobilization,Taping, Therapeutic Activities, Therapeutic Exercises Next Visit Focus/Plan Next Note Type Treatment Note Next Visit Plan STM plantar fascia and gastroc /soleus. Begin balance training-try SL arch lifts. KTape for plantar fasciitis. Continue educating pt on importance of stretching before/after runs.
--- NOTE | 2021-10-24 18:02 | PT.OTN ---
Current Diagnoses Other chronic pain (10/24/21) Plantar fascial fibromatosis (10/24/21) Pain in left foot (10/24/21) Difficulty in walking, not elsewhere classified (10/24/21) Physical Therapy Treatment Note PT-OP-A Visit Information Start: 10/04/21 12:56 Freq: Status: Active Protocol: Document 10/24/21 15:19 MA (Rec: 10/24/21 16:05 MA [id number]) Out-Patient Physical Therapy Visit Information Visit Information Visit Type Treatment Note Visit Start Time 15:15 Visit Stop Time 16:00 Total Visit Minutes 45 Visit Number 5 Number of GENERATOR REPAIRER Visits 4 PT-OP-B Current Condition Start: 10/04/21 12:56 Freq: Status: Active Protocol: Document 10/05/21 13:45 AW (Rec: 10/04/21 13:02 AW [id number]) Current Condition History of Current Condition Onset Date 1 month Current Complaints left foot pain History of Current Condition Freda is training for a [employer] this November. She has been carrying more weight in her pack (~45#) on local hiking trails several days per week. She usually hikes 1-2 hours at a time. She also does trail running. Her shoes are supportive and she uses an off -the-shelf insert to support her arches. She notices her left foot aching along medial arch. She is not aware of heel pain generally but notices it is tender to touch on the plantar surface. Ibuprofen on a limited basis, ice, rest, and massage are all helpful. She has most pain with inversion. She reports a remote history of left distal fibula fracture. 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 Treatment Goals Patient/Caregiver Goals Reduce pain. Be able to increase strength. [employer] without pain. PT-OP-C Subjective Start: 10/04/21 12:56 Freq: Status: Active Protocol: Document 10/24/21 15:19 MA (Rec: 10/24/21 16:05 MA [id number]) OP-PT Subjective Patient Comments Patient Comments Pt states she stretched everyday for a week and feels it didn't make a huge difference in pain. PT-OP-D Balance Start: 10/04/21 12:56 Freq: Status: Active Protocol: Document 10/05/21 13:45 AW (Rec: 10/09/21 16:49 AW [id number]) Balance Tests Single Limb Standing Single Limb- Right 25 seconds stable Single Limb- Left 18 seconds unstable PT-OP-F Manual Assessment Start: 10/04/21 12:56 Freq: Status: Active Protocol: Document 10/05/21 13:45 AW (Rec: 10/09/21 16:25 AW [id number]) Manual Assessments Soft Tissue Assessment Soft Tissue Mobility Assessment Increased density of gastroc/ soleus complex on the left. TTP along left longitudinal arch. Joint Mobility Assessment Joint Mobility Assessment Good mobility bilateral feet and ankles. PT-OP-G Mobility & Gait Start: 10/04/21 12:56 Freq: Status: Active Protocol: Document 10/05/21 13:45 AW (Rec: 10/09/21 16:25 AW [id number]) OP Gait Assessment Comments Gait Comments Gait notable for slightly weak left toe off. PT-OP-J Posture/Palpation/Skin Start: 10/04/21 12:56 Freq: Status: Active Protocol: Document 10/05/21 13:45 AW (Rec: 10/09/21 16:32 AW [id number]) Posture Evaluation Comments Posture Comments No incongruence in bony landmarks. No appreciable hindfoot varus or valgus. PT-OP-K Range of Motion Start: 10/04/21 12:56 Freq: Status: Active Protocol: Document 10/05/21 13:45 AW (Rec: 10/09/21 16:32 AW [id number]) Hip Goniometric Range of Motion Hip B Hip ROM WFL Yes Knee Goniometric Range of Motion Knee B Knee ROM WFL Yes Ankle and Foot Goniometric Range of Motion Ankle and Foot B Ankle/Foot ROM WFL Yes Comments No ROM limitations other than slightly painful inversion on the left PT-OP-M Strength Start: 10/04/21 12:56 Freq: Status: Active Protocol: Document 10/05/21 13:45 AW (Rec: 10/09/21 16:32 AW [id number]) Hip Strength Hip Manual Muscle Testing B Flexion (L2) 5 Normal Extension (S1) 4+ Good+ Abduction 4+ Good+ External Rotation 5 Normal Internal Rotation 5 Normal Knee Strength Knee Manual Muscle Testing B Flexion (S2) 5 Normal Extension (L3) 5 Normal Ankle/Foot Strength Ankle and Foot Manual Muscle Testing B Dorsiflexion (L4) 5 Normal Plantarflexion (S1) 4+ Good+ Inversion 4+ Good+ Eversion (S1) 5 Normal Toe Strength Toe Manual Muscle Testing Great Toe Comments 5/5 R; 4+/5 L PT-OP-Q Treatments Start: 10/04/21 12:56 Freq: Status: Active Protocol: Document 10/24/21 15:19 MA (Rec: 10/24/21 16:05 MA [id number]) Therapeutic Exercises Sitting Exercises PF/DF/IV/EV Side left Equipment Used lvl 2 TB Reps/Minutes 15x ea Comments added to HEP arch lift Sitting Exercise Name arch lift- in standing Side left Comments HEP Standing Exercises gastroc stretch Standing Exercise Name gastroc stretch - standing at wall Side bilateral Reps/Minutes 30 SH x 4 Comments HEP Other Exercises Foam Roller Other Exercise Name Rolling gastrocs Side bilateral Equipment Used foam roller Reps/Minutes 5' Comments added to HEP Manual Therapy Treatment Soft Tissue Mobilization Gastroc Body Location L gastroc and plantar fascia, anterior tibialis Mobilization Type Myofascial Release,Sustained Pressure,Trigger Point Release Intensity/Depth Moderate Body Position Prone Comments seated for ant. tib. PT-OP-R Modalities Start: 10/04/21 12:56 Freq: Status: Active Protocol: Document 10/17/21 16:53 MA (Rec: 10/17/21 17:57 MA [id number]) Hot Pack/Cold Pack Treatment Ice Massage Location plantar fascia Patient Position Supine Treatment Duration (minutes) 5 Patient Tolerance Good PT-OP-T Assessment and Plan Start: 10/04/21 12:56 Freq: Status: Active Protocol: Document 10/24/21 15:19 MA (Rec: 10/24/21 16:05 MA [id number]) Physical Therapy Assessment Goals Four Impairment walking tolerance affected by left foot pain Short Term Goal (STG) Pt will hike trails with loaded backpack 2 hours without increase in baseline pain. STG Duration 4 weeks - 11/02/21 Slasher Machine Operator Goal (LTG) Pt will hike trails with loaded backpack at least 4 hours without increase in baseline pain. LTG Duration 8 weeks - 11/30/21 Three Impairment balance/single leg stance Custodial Goal (LTG) Pt will improve single leg stance to stable 30 seconds BLE as a measure of improved ankle stability. LTG Duration 8 weeks - 11/30/21 Two Impairment left foot/ankle strength Custodial Goal (LTG) Pt will improve left foot and ankle strength to 5/5 all planes to improve gait quality . LTG Duration 8 weeks - 11/30/21 One Impairment lacks HEP Short Term Goal (STG) Pt will be instructed in HEP for to manage left foot pain and improve left foot/ankle strength and stability. STG Duration 4 weeks - 11/02/21 Custodial Goal (LTG) Pt will be independent with HEP for to manage left foot pain and improve left foot/ ankle strength and stability. LTG Duration 8 weeks - 11/30/21 Assessment Summary Assessment Freda continues to have pain in L foot only when carrying a pack while hiking or after runs. After reviewing HEP, pt requires max cues to slow down and to hold stretches for minimum of 30 seconds. She would like to drop down to 1x every other week for PT. Physical Therapy Plan Frequency and Duration Frequency of Treatment 2x/Week Duration of Treatment 2 months Plan of Care Start Date 10/05/21 Plan of Care End Date 12/05/21 Therapeutic Interventions Therapeutic Interventions Balance Training,Gait Training ,Home Exercise Program,Manual Therapy,Neuromuscular Re- education,Self-Care/Home Management,Soft Tissue Mobilization,Taping, Therapeutic Activities, Therapeutic Exercises Next Visit Focus/Plan Next Note Type Treatment Note Next Visit Plan STM plantar fascia and gastroc /soleus. Continuie working on arch lifts and SL balance challenges. KTape for plantar fasciitis as needed. Continue educating pt on importance of stretching before/after runs.
--- NOTE | 2021-10-27 17:06 | PT.OTN ---
Current Diagnoses Other chronic pain (10/27/21) Plantar fascial fibromatosis (10/27/21) Pain in left foot (10/27/21) Difficulty in walking, not elsewhere classified (10/27/21) Physical Therapy Treatment Note PT-OP-A Visit Information Start: 10/04/21 12:56 Freq: Status: Active Protocol: Document 10/27/21 15:16 AW (Rec: 10/27/21 16:04 AW [id number]) Out-Patient Physical Therapy Visit Information Visit Information Visit Type Treatment Note Visit Start Time 15:15 Visit Stop Time 16:00 Total Visit Minutes 45 Visit Number 6 Number of SALES CLERK SUPERVISOR Visits 0 Evaluation Information Evaluation Date 10/05/21 PT-OP-B Current Condition Start: 10/04/21 12:56 Freq: Status: Active Protocol: Document 10/05/21 13:45 AW (Rec: 10/04/21 13:02 AW [id number]) Current Condition History of Current Condition Onset Date 1 month Current Complaints left foot pain History of Current Condition Freda is training for a Work in [employer] this November. She has been carrying more weight in her pack (~45#) on local hiking trails several days per week. She usually hikes 1-2 hours at a time. She also does trail running. Her shoes are supportive and she uses an off -the-shelf insert to support her arches. She notices her left foot aching along medial arch. She is not aware of heel pain generally but notices it is tender to touch on the plantar surface. Ibuprofen on a limited basis, ice, rest, and massage are all helpful. She has most pain with inversion. She reports a remote history of left distal fibula fracture. 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 Prior Treatments and Tests PMH: left BRCA s/p partial mastectomy 2019 Future Testing and Treatments Planned Pt will see podiatry tomorrow. Treatment Goals Patient/Caregiver Goals Reduce pain. Be able to increase strength. Hike [employer] without pain. PT-OP-C Subjective Start: 10/04/21 12:56 Freq: Status: Active Protocol: Document 10/27/21 15:16 AW (Rec: 10/27/21 16:04 AW [id number]) OP-PT Subjective Patient Comments Patient Comments Pt states her foot is feeling better when hiking without load but is still sore under load. PT-OP-D Balance Start: 10/04/21 12:56 Freq: Status: Active Protocol: Document 10/05/21 13:45 AW (Rec: 10/09/21 16:49 AW [id number]) Balance Tests Single Limb Standing Single Limb- Right 25 seconds stable Single Limb- Left 18 seconds unstable PT-OP-F Manual Assessment Start: 10/04/21 12:56 Freq: Status: Active Protocol: Document 10/05/21 13:45 AW (Rec: 10/09/21 16:25 AW [id number]) Manual Assessments Soft Tissue Assessment Soft Tissue Mobility Assessment Increased density of gastroc/ soleus complex on the left. TTP along left longitudinal arch. Joint Mobility Assessment Joint Mobility Assessment Good mobility bilateral feet and ankles. PT-OP-G Mobility & Gait Start: 10/04/21 12:56 Freq: Status: Active Protocol: Document 10/05/21 13:45 AW (Rec: 10/09/21 16:25 AW [id number]) OP Gait Assessment Comments Gait Comments Gait notable for slightly weak left toe off. PT-OP-J Posture/Palpation/Skin Start: 10/04/21 12:56 Freq: Status: Active Protocol: Document 10/05/21 13:45 AW (Rec: 10/09/21 16:32 AW [id number]) Posture Evaluation Comments Posture Comments No incongruence in bony landmarks. No appreciable hindfoot varus or valgus. PT-OP-K Range of Motion Start: 10/04/21 12:56 Freq: Status: Active Protocol: Document 10/05/21 13:45 AW (Rec: 10/09/21 16:32 AW [id number]) Hip Goniometric Range of Motion Hip B Hip ROM WFL Yes Knee Goniometric Range of Motion Knee B Knee ROM WFL Yes Ankle and Foot Goniometric Range of Motion Ankle and Foot B Ankle/Foot ROM WFL Yes Comments No ROM limitations other than slightly painful inversion on the left PT-OP-M Strength Start: 10/04/21 12:56 Freq: Status: Active Protocol: Document 10/05/21 13:45 AW (Rec: 10/09/21 16:32 AW [id number]) Hip Strength Hip Manual Muscle Testing B Flexion (L2) 5 Normal Extension (S1) 4+ Good+ Abduction 4+ Good+ External Rotation 5 Normal Internal Rotation 5 Normal Knee Strength Knee Manual Muscle Testing B Flexion (S2) 5 Normal Extension (L3) 5 Normal Ankle/Foot Strength Ankle and Foot Manual Muscle Testing B Dorsiflexion (L4) 5 Normal Plantarflexion (S1) 4+ Good+ Inversion 4+ Good+ Eversion (S1) 5 Normal Toe Strength Toe Manual Muscle Testing Great Toe Comments 5/5 R; 4+/5 L PT-OP-Q Treatments Start: 10/04/21 12:56 Freq: Status: Active Protocol: Document 10/27/21 15:16 AW (Rec: 10/27/21 16:04 AW [id number]) Therapeutic Exercises Sitting Exercises arch lift Sitting Exercise Name arch lift- in standing Side left Comments HEP Standing Exercises heel lift Standing Exercise Name heel lift - double leg Side bilateral Reps/Minutes 2x15 Comments focus on eccentric phase; HEP gastroc stretch Standing Exercise Name gastroc stretch Side bilateral Equipment Used SCOTTIE x 2; wall x 2 Reps/Minutes 30 SH x 4 Comments HEP Manual Therapy Treatment Soft Tissue Mobilization Gastroc Body Location L gastroc and plantar fascia, anterior tibialis Mobilization Type Instrument Assisted,Myofascial Release,Sustained Pressure, Trigger Point Release Intensity/Depth Moderate Body Position Prone Comments seated for ant. tib. Stainless steel tool for plantar fascia and for medial gastroc TP Neuro Re-Education Treatment Balance Activities rocker board Details rocker board Reps/Duration 3 min Comments DLS and SLS Foam Details SLS Surface uneven Equipment airex Reps/Duration 10 min Comments SLS with arch lift, EO, EC, head turns PT-OP-R Modalities Start: 10/04/21 12:56 Freq: Status: Active Protocol: Document 10/17/21 16:53 MA (Rec: 10/17/21 17:57 MA [id number]) Hot Pack/Cold Pack Treatment Ice Massage Location plantar fascia Patient Position Supine Treatment Duration (minutes) 5 Patient Tolerance Good PT-OP-T Assessment and Plan Start: 10/04/21 12:56 Freq: Status: Active Protocol: Document 10/27/21 15:16 AW (Rec: 10/27/21 16:04 AW [id number]) Physical Therapy Assessment Goals Four Impairment walking tolerance affected by left foot pain Short Term Goal (STG) Pt will hike trails with loaded backpack 2 hours without increase in baseline pain. STG Duration 4 weeks - 11/02/21 Custodial Goal (LTG) Pt will hike trails with loaded backpack at least 4 hours without increase in baseline pain. LTG Duration 8 weeks - 11/30/21 Three Impairment balance/single leg stance Sheet Metal Assembler Goal (LTG) Pt will improve single leg stance to stable 30 seconds BLE as a measure of improved ankle stability. LTG Duration 8 weeks - 11/30/21 Two Impairment left foot/ankle strength Sheet Metal Assembler Goal (LTG) Pt will improve left foot and ankle strength to 5/5 all planes to improve gait quality . LTG Duration 8 weeks - 11/30/21 One Impairment lacks HEP Short Term Goal (STG) Pt will be instructed in HEP for to manage left foot pain and improve left foot/ankle strength and stability. STG Duration 4 weeks - 11/02/21 Sheet Metal Assembler Goal (LTG) Pt will be independent with HEP for to manage left foot pain and improve left foot/ ankle strength and stability. LTG Duration 8 weeks - 11/30/21 Assessment Summary Assessment Pt requires cues to hold stretches for at least 30 seconds. Focused today on single leg stance on uneven surfaces and incorporated arch lift into all activities. Pt improving slowly but may need to grade her return to loaded hiking. Physical Therapy Plan Frequency and Duration Frequency of Treatment 2x/Week Duration of Treatment 2 months Plan of Care Start Date 10/05/21 Plan of Care End Date 12/05/21 Therapeutic Interventions Therapeutic Interventions Balance Training,Gait Training ,Home Exercise Program,Manual Therapy,Neuromuscular Re- education,Self-Care/Home Management,Soft Tissue Mobilization,Taping, Therapeutic Activities, Therapeutic Exercises Next Visit Focus/Plan Next Note Type Treatment Note Next Visit Plan STM plantar fascia and gastroc /soleus. Continuie working on arch lifts and SL balance challenges. KTape for plantar fasciitis as needed. Continue educating pt on importance of stretching before/after runs. Continue uneven surface training.
--- NOTE | 2021-11-30 12:46 | PT.OTN ---
Current Diagnoses Other chronic pain (11/30/21) Plantar fascial fibromatosis (11/30/21) Pain in left foot (11/30/21) Difficulty in walking, not elsewhere classified (11/30/21) Physical Therapy Treatment Note PT-OP-A Visit Information Start: 10/04/21 12:56 Freq: Status: Active Protocol: Document 11/30/21 11:40 MA (Rec: 11/30/21 12:45 MA [id number]) Out-Patient Physical Therapy Visit Information Visit Information Visit Type Treatment Note Visit Start Time 11:45 Visit Stop Time 12:00 Total Visit Minutes 45 Visit Number 7 Number of THEORETICAL PHYSICS TEACHER Visits 1 PT-OP-B Current Condition Start: 10/04/21 12:56 Freq: Status: Active Protocol: Document 10/05/21 13:45 AW (Rec: 10/04/21 13:02 AW [id number]) Current Condition History of Current Condition Onset Date 1 month Current Complaints left foot pain History of Current Condition Freda is training for a [employer] this November. She has been carrying more weight in her pack (~45#) on local hiking trails several days per week. She usually hikes 1-2 hours at a time. She also does trail running. Her shoes are supportive and she uses an off -the-shelf insert to support her arches. She notices her left foot aching along medial arch. She is not aware of heel pain generally but notices it is tender to touch on the plantar surface. Ibuprofen on a limited basis, ice, rest, and massage are all helpful. She has most pain with inversion. She reports a remote history of left distal fibula fracture. 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 Treatment Goals Patient/Caregiver Goals Reduce pain. Be able to increase strength. Hike [employer] without pain. PT-OP-C Subjective Start: 10/04/21 12:56 Freq: Status: Active Protocol: Document 11/30/21 11:40 MA (Rec: 11/30/21 12:45 MA [id number]) OP-PT Subjective Patient Comments Patient Comments Pt's pain has overall improved . She was able to hike with 25 # with no plantar fasciitis pain but mild calf pain. PT-OP-D Balance Start: 10/04/21 12:56 Freq: Status: Active Protocol: Document 10/05/21 13:45 AW (Rec: 10/09/21 16:49 AW [id number]) Balance Tests Single Limb Standing Single Limb- Right 25 seconds stable Single Limb- Left 18 seconds unstable PT-OP-F Manual Assessment Start: 10/04/21 12:56 Freq: Status: Active Protocol: Document 10/05/21 13:45 AW (Rec: 10/09/21 16:25 AW [id number]) Manual Assessments Soft Tissue Assessment Soft Tissue Mobility Assessment Increased density of gastroc/ soleus complex on the left. TTP along left longitudinal arch. Joint Mobility Assessment Joint Mobility Assessment Good mobility bilateral feet and ankles. PT-OP-G Mobility & Gait Start: 10/04/21 12:56 Freq: Status: Active Protocol: Document 10/05/21 13:45 AW (Rec: 10/09/21 16:25 AW [id number]) OP Gait Assessment Comments Gait Comments Gait notable for slightly weak left toe off. PT-OP-J Posture/Palpation/Skin Start: 10/04/21 12:56 Freq: Status: Active Protocol: Document 10/05/21 13:45 AW (Rec: 10/09/21 16:32 AW [id number]) Posture Evaluation Comments Posture Comments No incongruence in bony landmarks. No appreciable hindfoot varus or valgus. PT-OP-K Range of Motion Start: 10/04/21 12:56 Freq: Status: Active Protocol: Document 10/05/21 13:45 AW (Rec: 10/09/21 16:32 AW [id number]) Hip Goniometric Range of Motion Hip B Hip ROM WFL Yes Knee Goniometric Range of Motion Knee B Knee ROM WFL Yes Ankle and Foot Goniometric Range of Motion Ankle and Foot B Ankle/Foot ROM WFL Yes Comments No ROM limitations other than slightly painful inversion on the left PT-OP-M Strength Start: 10/04/21 12:56 Freq: Status: Active Protocol: Document 10/05/21 13:45 AW (Rec: 10/09/21 16:32 AW [id number]) Hip Strength Hip Manual Muscle Testing B Flexion (L2) 5 Normal Extension (S1) 4+ Good+ Abduction 4+ Good+ External Rotation 5 Normal Internal Rotation 5 Normal Knee Strength Knee Manual Muscle Testing B Flexion (S2) 5 Normal Extension (L3) 5 Normal Ankle/Foot Strength Ankle and Foot Manual Muscle Testing B Dorsiflexion (L4) 5 Normal Plantarflexion (S1) 4+ Good+ Inversion 4+ Good+ Eversion (S1) 5 Normal Toe Strength Toe Manual Muscle Testing Great Toe Comments 5/5 R; 4+/5 L PT-OP-Q Treatments Start: 10/04/21 12:56 Freq: Status: Active Protocol: Document 11/30/21 11:40 MA (Rec: 11/30/21 12:45 MA [id number]) Therapeutic Exercises Sitting Exercises arch lift Sitting Exercise Name arch lift- in standing Side left Comments HEP Standing Exercises heel lift Standing Exercise Name heel lift - double leg Side bilateral Reps/Minutes 2x15 Comments focus on eccentric phase; HEP gastroc stretch Standing Exercise Name gastroc stretch Side bilateral Equipment Used SCOTTIE x 2; wall x 2 Reps/Minutes 30 SH x 4 Comments HEP Other Exercises Foam Roller Other Exercise Name Rolling gastrocs Side bilateral Equipment Used foam roller Reps/Minutes 5' Comments added to HEP Manual Therapy Treatment Soft Tissue Mobilization Gastroc Body Location L gastroc and plantar fascia, anterior tibialis Mobilization Type Myofascial Release,Sustained Pressure,Trigger Point Release Intensity/Depth Moderate Body Position Prone Neuro Re-Education Treatment Balance Activities Foam Details SLS Surface uneven Equipment airex Reps/Duration 10 min Comments 1. SLS with arch lift, EO, EC, head turns 2. arch lift marble spanish moss picker PT-OP-R Modalities Start: 10/04/21 12:56 Freq: Status: Active Protocol: Document 10/17/21 16:53 MA (Rec: 10/17/21 17:57 MA [id number]) Hot Pack/Cold Pack Treatment Ice Massage Location plantar fascia Patient Position Supine Treatment Duration (minutes) 5 Patient Tolerance Good PT-OP-T Assessment and Plan Start: 10/04/21 12:56 Freq: Status: Active Protocol: Document 11/30/21 11:40 MA (Rec: 11/30/21 12:45 MA [id number]) Physical Therapy Assessment Goals Four Impairment walking tolerance affected by left foot pain Short Term Goal (STG) Pt will hike trails with loaded backpack 2 hours without increase in baseline pain. STG Duration achieved Aprn Goal (LTG) Pt will hike trails with loaded backpack at least 4 hours without increase in baseline pain. 11/30- no plantar fascia pain but minor proximal gastroc pain LTG Duration achieved Three Impairment balance/single leg stance Nursing Home Goal (LTG) Pt will improve single leg stance to stable 30 seconds BLE as a measure of improved ankle stability. LTG Duration achieved Two Impairment left foot/ankle strength Aprn Goal (LTG) Pt will improve left foot and ankle strength to 5/5 all planes to improve gait quality . LTG Duration 8 weeks - 11/30/21 One Impairment lacks HEP Short Term Goal (STG) Pt will be instructed in HEP for to manage left foot pain and improve left foot/ankle strength and stability. STG Duration achieved Aprn Goal (LTG) Pt will be independent with HEP for to manage left foot pain and improve left foot/ ankle strength and stability. LTG Duration achieved Assessment Summary Assessment Pt is doing well holding stretches longer now and has been more consistent with her HEP. She has had no plantar fascia pain but has had some proximal gastroc pain after longer hikes. Her SLS time has improved and she can complete 30 seconds bilatearlly with eyes open. She continues to be challenged by eyes closed and head turns in SLS, especiall yon uneven surfaces. Pt requests d/c as she has had no pain when she keeps up with her HEP and she will be moving soon. Physical Therapy Plan Frequency and Duration Frequency of Treatment 2x/Week Duration of Treatment 2 months Plan of Care Start Date 10/05/21 Plan of Care End Date 12/05/21 Therapeutic Interventions Therapeutic Interventions Balance Training,Gait Training ,Home Exercise Program,Manual Therapy,Neuromuscular Re- education,Self-Care/Home Management,Soft Tissue Mobilization,Taping, Therapeutic Activities, Therapeutic Exercises Next Visit Focus/Plan Next Note Type Discharge Summary
--- NOTE | 2021-12-01 16:50 | PT.OPDS ---
Current Diagnoses Other chronic pain (11/30/21) Plantar fascial fibromatosis (11/30/21) Pain in left foot (11/30/21) Difficulty in walking, not elsewhere classified (11/30/21) Visit Care Team Role Provider Type MAXWELL Florian Attending Provider [employer] Bro[employer] Family Provider Primary Care Provider Referring Provider Specialty: Medical Address: [address] [place] [address], [facility] Email: [email or web address] Visit Number Visit Number 7 Discharge Summary PT-OP-B Current Condition Start: 10/04/21 12:56 Freq: Status: Active Protocol: Document 10/05/21 13:45 AW (Rec: 10/04/21 13:02 AW [id number]) Current Condition History of Current Condition Onset Date 1 month Current Complaints left foot pain History of Current Condition Freda is training for a [employer] this November. She has been carrying more weight in her pack (~45#) on local hiking trails several days per week. She usually hikes 1-2 hours at a time. She also does trail running. Her shoes are supportive and she uses an off -the-shelf insert to support her arches. She notices her left foot aching along medial arch. She is not aware of heel pain generally but notices it is tender to touch on the plantar surface. Ibuprofen on a limited basis, ice, rest, and massage are all helpful. She has most pain with inversion. She reports a remote history of left distal fibula fracture. 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 Treatment Goals Patient/Caregiver Goals Reduce pain. Be able to increase strength. Hike [place] without pain. PT-OP-C Subjective Start: 10/04/21 12:56 Freq: Status: Active Protocol: Document 11/30/21 11:40 MA (Rec: 11/30/21 12:45 MA [id number]) OP-PT Subjective Patient Comments Patient Comments Pt's pain has overall improved . She was able to hike with 25 # with no plantar fasciitis pain but mild calf pain. PT-OP-D Balance Start: 10/04/21 12:56 Freq: Status: Active Protocol: Document 10/05/21 13:45 AW (Rec: 10/09/21 16:49 AW [id number]) Balance Tests Single Limb Standing Single Limb- Right 25 seconds stable Single Limb- Left 18 seconds unstable PT-OP-F Manual Assessment Start: 10/04/21 12:56 Freq: Status: Active Protocol: Document 10/05/21 13:45 AW (Rec: 10/09/21 16:25 AW [id number]) Manual Assessments Soft Tissue Assessment Soft Tissue Mobility Assessment Increased density of gastroc/ soleus complex on the left. TTP along left longitudinal arch. Joint Mobility Assessment Joint Mobility Assessment Good mobility bilateral feet and ankles. PT-OP-G Mobility & Gait Start: 10/04/21 12:56 Freq: Status: Active Protocol: Document 10/05/21 13:45 AW (Rec: 10/09/21 16:25 AW [id number]) OP Gait Assessment Comments Gait Comments Gait notable for slightly weak left toe off. PT-OP-J Posture/Palpation/Skin Start: 10/04/21 12:56 Freq: Status: Active Protocol: Document 10/05/21 13:45 AW (Rec: 10/09/21 16:32 AW [id number]) Posture Evaluation Comments Posture Comments No incongruence in bony landmarks. No appreciable hindfoot varus or valgus. PT-OP-K Range of Motion Start: 10/04/21 12:56 Freq: Status: Active Protocol: Document 10/05/21 13:45 AW (Rec: 10/09/21 16:32 AW [id number]) Hip Goniometric Range of Motion Hip B Hip ROM WFL Yes Knee Goniometric Range of Motion Knee B Knee ROM WFL Yes Ankle and Foot Goniometric Range of Motion Ankle and Foot B Ankle/Foot ROM WFL Yes Comments No ROM limitations other than slightly painful inversion on the left PT-OP-M Strength Start: 10/04/21 12:56 Freq: Status: Active Protocol: Document 10/05/21 13:45 AW (Rec: 10/09/21 16:32 AW [id number]) Hip Strength Hip Manual Muscle Testing B Flexion (L2) 5 Normal Extension (S1) 4+ Good+ Abduction 4+ Good+ External Rotation 5 Normal Internal Rotation 5 Normal Knee Strength Knee Manual Muscle Testing B Flexion (S2) 5 Normal Extension (L3) 5 Normal Ankle/Foot Strength Ankle and Foot Manual Muscle Testing B Dorsiflexion (L4) 5 Normal Plantarflexion (S1) 4+ Good+ Inversion 4+ Good+ Eversion (S1) 5 Normal Toe Strength Toe Manual Muscle Testing Great Toe Comments 5/5 R; 4+/5 L PT-OP-T Assessment and Plan Start: 10/04/21 12:56 Freq: Status: Active Protocol: Document 12/01/21 16:49 AW (Rec: 12/01/21 16:50 AW [id number]) Physical Therapy Plan Discharge Physical Therapy Discharge Reasons Patient Request Discharge Comments Pt reports good adherence to HEP and feels she has met her goals for physical therapy. Pt requests discharge.
== END 2021-12-02 14:00 ==
LOC: PHYS 11:45
PROVIDERS: Family Provider Registered Nurse; PCP Registered Nurse; Referring Provider Registered Nurse; Visit Provider Registered Nurse
DX: M79.672 Pain in left foot (principal); G89.29 Other chronic pain; M72.2 Plantar fascial fibromatosis; R26.2 Difficulty in walking, not elsewhere classified
CPT/HCPCS: 97110; 97112; 97140; 97161; 97535

== ENCOUNTER → 2023-04-12 | Outpatient (CLI) | payer SELFPAY | PROVIDERS: Referring Provider Family Medicine; Visit Provider Family Medicine | DX: Z23 Encounter for immunization (principal) | CPT/HCPCS: 90471; 90686 ==

== ENCOUNTER → 2023-06-14 08:43 | Outpatient (CLI) | payer OTHER, SELFPAY ==
[2023-06-14 10:02] LABS: Add Manual Diff / Slide Review NO; Basophils Absolute Auto 0 /uL (0-100); Basophils Percent Auto 0.3 % (0-2); Eosinophils Absolute Auto 100 /uL (0-450); Eosinophils Percent Auto 1.7 % (2-4); Hematocrit 37.7 % (36-46); Hemoglobin 12.9 g/dL (12.0-16.0); Lymphocytes Absolute Auto 1600 /uL (1100-4500); Lymphocytes Percent Auto 34.8 % (25-40); Mean Corpuscular HGB Conc 34.3 % (30-36); Mean Corpuscular Hemoglobin 29.2 PG (26-34); Monocytes Absolute Auto 300 /uL (0-900); Neutrophils Absolute Auto 2700 /uL (1500-7000); Neutrophils Percent Auto 57.2 % (50-75); Platelet Count 253 X10^3/uL (150-400); Red Blood Cell Count 4.43 X10^6/uL (4.0-5.2); Red Cell Distribution Width 13.5 % (11.6-14.8); White Blood Cell Count 4.6 X10^3/uL (4.5-11.0)
[2023-06-14 10:05] LABS: Hemoglobin A1C% w Est Avg Glu 5.5 % (4.0-6.0)
[2023-06-14 10:11] LABS: Alanine Aminotransferase 35 IU/L (<35); Albumin 4.1 g/dL (3.5-5.0); Albumin Globulin Ratio 1.5 (1.0-2.8); Alkaline Phosphatase 60 U/L (38-126); Aspartate Aminotransferase 28 IU/L (14-36); BUN Creatinine Ratio 25.8 (6-22); Bilirubin Total 0.6 mg/dL (0.2-1.3); Blood Urea Nitrogen 16 mg/dL (7-17); Calcium 9.5 mg/dL (8.4-10.2); Carbon Dioxide 30 mmol/L (22-32); Chloride 100 mmol/L (98-107); Cholesterol 179 mg/dL (140-199); Estimated Glomerular Filt Rate > 60 mL/min (>60); Globulin 2.8 g/dL (1.7-4.1); Glucose 88 mg/dL (70-100); HDL Cholesterol 62 mg/dL (40-60); HEMOLYSIS < 15 (0-50); LDL Cholesterol Calculated 103 mg/dL (<100); Potassium 4.3 mmol/L (3.4-5.1); Sodium 136 mmol/L (137-145); Total Protein 6.9 g/dL (6.3-8.2); Triglycerides 71 mg/dL (35-150)
[2023-06-14 10:29] LABS: Vitamin D 25 Hydroxy (D3) 61.7 ng/mL (30.0-100.0)
== END ==
PROVIDERS: PCP Family Medicine; Referring Provider Family Medicine; Visit Provider Family Medicine
DX: R53.83 Other fatigue (principal); N92.1 Excessive and frequent menstruation with irregular cycle; M79.672 Pain in left foot; G89.29 Other chronic pain
CPT/HCPCS: 36415; 80053; 80061; 82306; 83036; 85025

== ENCOUNTER → 2024-04-21 14:12 | Outpatient (CLI) | payer OTHER, SELFPAY | PROVIDERS: PCP Family Medicine; Referring Provider Internal Medicine; Visit Provider Internal Medicine | DX: Z23 Encounter for immunization (principal) | CPT/HCPCS: 90471; 90656 ==

== ENCOUNTER → 2024-05-23 13:47 | Outpatient (CLI) | payer OTHER, SELFPAY ==
[2024-05-23 15:11] LABS: Add Manual Diff / Slide Review NO; Basophils Absolute Auto 0 /uL (0-100); Basophils Percent Auto 0.2 % (0-2); Eosinophils Absolute Auto 0 /uL (0-450); Eosinophils Percent Auto 0.7 % (2-4); Hemoglobin 13.1 g/dL (12.0-16.0); Lymphocytes Absolute Auto 1500 /uL (1100-4500); Lymphocytes Percent Auto 24.2 % (25-40); Mean Corpuscular HGB Conc 33.6 % (30-36); Mean Corpuscular Hemoglobin 28.3 PG (26-34); Mean Corpuscular Volume 84.2 fL (80-100); Monocytes Absolute Auto 300 /uL (0-900); Monocytes Percent Auto 4.6 % (3-14); Neutrophils Absolute Auto 4400 /uL (1500-7000); Neutrophils Percent Auto 70.3 % (50-75); Platelet Count 243 X10^3/uL (150-400); Red Blood Cell Count 4.63 X10^6/uL (4.0-5.2); Red Cell Distribution Width 13.6 % (11.6-14.8); White Blood Cell Count 6.3 X10^3/uL (4.5-11.0)
[2024-05-23 15:22] LABS: Alanine Aminotransferase 22 IU/L (<35); Albumin 4.1 g/dL (3.5-5.0); Albumin Globulin Ratio 1.5 (1.0-2.8); Alkaline Phosphatase 70 U/L (38-126); Aspartate Aminotransferase 28 IU/L (14-36); BUN Creatinine Ratio 27.3 (6-22); Bilirubin Total 0.4 mg/dL (0.2-1.3); Blood Urea Nitrogen 18 mg/dL (7-17); Calcium 9.3 mg/dL (8.4-10.2); Carbon Dioxide 28 mmol/L (22-32); Chloride 102 mmol/L (98-107); Cholesterol 180 mg/dL (140-199); Estimated Glomerular Filt Rate > 60 mL/min (>60); Globulin 2.8 g/dL (1.7-4.1); Glucose 120 mg/dL (70-100); HDL Cholesterol 83 mg/dL (40-60); HEMOLYSIS < 15 (0-50); LDL Cholesterol Calculated 85 mg/dL (<100); Potassium 4.2 mmol/L (3.4-5.1); Sodium 134 mmol/L (137-145); Total Protein 6.9 g/dL (6.3-8.2); Triglycerides 59 mg/dL (35-150)
[2024-05-26 10:02] LABS: Hemoglobin A1C% w Est Avg Glu 5.5 % (4.0-6.0)
== END ==
PROVIDERS: PCP Family Medicine; Referring Provider Family Medicine; Visit Provider Family Medicine
DX: Z13.1 Encounter for screening for diabetes mellitus (principal); Z13.6 Encounter for screening for cardiovascular disorders; R53.83 Other fatigue; E66.3 Overweight
CPT/HCPCS: 36415; 80053; 80061; 83036; 85025

== ENCOUNTER → 2024-06-23 08:33 | Outpatient (CLI) | payer OTHER, SELFPAY ==
[2024-06-23 09:31] LABS: Adenovirus Not Detected (Not Detect); B. parapertussis Not Detected (Not Detecte); Bordetella pertussis Not Detected (Not Detect); Chlamydophila pneumoniae Not Detected (Not Detect); Coronavirus 229E Not Detected (Not Detect); Coronavirus HKU1 Not Detected (Not Detect); Coronavirus NL 63 Detected (Not Detect); Coronavirus OC43 Not Detected (Not Detect); Human Metapneumovirus Not Detected (Not Detect); Human Rhinovirus/Enterovirus Not Detected (Not Detect); Influenza A Not Detected (Not Detect); Influenza B Not Detected (Not Detect); Mycoplasma pneumoniae Not Detected (Not Detect); Parainfluenza Virus 1 Not Detected (Not Detect); Parainfluenza Virus 2 Not Detected (Not Detect); Parainfluenza Virus 3 Not Detected (Not Detect); Parainfluenza Virus 4 Not Detected (Not Detect); Respiratory Syncytial Virus Not Detected (Not Detect); SARS- CoV-2 Not Detected (Not Detecte)
== END ==
PROVIDERS: PCP Family Medicine; Visit Provider Nurse Practitioner Family
DX: R05.1 Acute cough (principal)
CPT/HCPCS: 87633